=== PATIENT | female | born 1995 | race Caucasian/White ===

== ENCOUNTER 2017-08-02 20:17 | Emergency (ER) | payer BC ==
[~2017-08-02] VITALS: Ht 165.1 cm; Wt 62.4 kg
[2017-08-02 20:33] VITALS: BP 128/90
[2017-08-02] MEDS ORDERED: BCP (20:38)
[2017-08-02] MEDS ORDERED: KETOROLAC 30 MG/1 ML ONE (20:50)
[2017-08-02] MEDS ORDERED: KETOROLAC 30 MG/1 ML IM ONE (21:00)
[2017-08-02] MEDS ORDERED: ONDANSETRON ODT 4 MG PO ONE (21:30)
[2017-08-02] MEDS ORDERED: HYDROcodone/APAP 5/325 TABLET PO ONE (21:30)
[2017-08-02] MEDS ORDERED: ONDANSETRON ODT 4 MG ONE (21:52)
[2017-08-02] MEDS ORDERED: HYDROcodone/APAP 5/325 TABLET ONE (21:52)
== END 2017-08-02 22:09 | disposition home or self-care (01) ==
LOC: ED 21:45
DX: S83.91XA Sprain of unspecified site of right knee, initial encounter (principal); X58.XXXA Exposure to other specified factors, initial encounter; Y93.01 Activity, walking, marching and hiking; Y92.89 Other specified places as the place of occurrence of the external cause; Y99.8 Other external cause status
CPT/HCPCS: 29505; 73564; 73590; 96372; 99284; J1885; Q0162

== ENCOUNTER 2017-12-21 16:53 | Emergency (ER) | payer BC ==
[~2017-12-21] VITALS: Ht 165.1 cm; Wt 80.0 kg
[~2017-12-21 16:53] MED LIST: BCP
[2017-12-21 16:56] VITALS: BP 138/86
[2017-12-21] MEDS ORDERED: HYDROcodone/APAP 5/325 TABLET PO PRN (17:30)
[2017-12-21] MEDS ORDERED: IBUPROFEN 200 MG TABLET PO ONE (17:30)
[2017-12-21] MEDS ORDERED: HYDROcodone/APAP 5/325 TABLET ONE (17:33)
[2017-12-21] MEDS ORDERED: IBUPROFEN 200 MG TABLET ONE (17:34)
== END 2017-12-21 18:37 | disposition home or self-care (01) ==
LOC: ED 18:28
DX: G89.11 Acute pain due to trauma (principal); M79.604 Pain in right leg
CPT/HCPCS: 99284

== ENCOUNTER 2018-05-15 20:53 | Emergency (ER) | payer BC ==
[~2018-05-15] VITALS: Ht 165.1 cm; Wt 75.9 kg
[2018-05-15] MEDS ORDERED: ALBUTEROL (21:29)
[2018-05-15] MEDS ORDERED: AZIT250T89 PO (21:29)
[2018-05-15] MEDS ORDERED: MUCINEX (21:29)
[2018-05-15 21:55] VITALS: BP 114/75
[2018-05-15] MEDS ORDERED: IBUPROFEN 800 MG TABLET ONE (22:39)
[2018-05-15] MEDS ORDERED: IBUPROFEN 200 MG TABLET PO ONE (23:00)
== END 2018-05-15 22:45 | disposition home or self-care (01) ==
LOC: ED 22:40
DX: R07.89 Other chest pain (principal); R05 Cough
CPT/HCPCS: 71046; 93005; 99284

== ENCOUNTER 2020-05-02 02:04 | Emergency (ER) | payer BC ==
[~2020-05-02] VITALS: Ht 165.1 cm; Wt 75.0 kg
[~2020-05-02 02:04] MED LIST changes: +ALBUTEROL; +AZIT250T89 PO; +MUCINEX
[2020-05-02] MEDS ORDERED: ONDANSETRON 2MG/ML, 2ML ONE (02:42)
[2020-05-02] MEDS ORDERED: SODIUM CHLORIDE FLUSH 10ML SYR IVF ONE (03:00)
[2020-05-02] MEDS ORDERED: ONDANSETRON 2MG/ML, 2ML IVPush ONE (03:00)
[2020-05-02] MEDS ORDERED: SODIUM CHLORIDE 0.9% 1,000ML IVBOLUS ONE (03:00)
[2020-05-02 03:17] LABS: MICROSCOPIC INDICATED
[2020-05-02 03:23] LABS: BASOPHILS % (AUTO) 0 % (0-1); EOSINOPHILS # (AUTO) 0.03 x10^3/uL (0-0.4); EOSINOPHILS % (AUTO) 0 % (1-7); LYMPHOCYTES # (AUTO) 0.59 x10^3/uL (1-3.4); LYMPHOCYTES % (AUTO) 7 % (22-44); MD NO; MEAN CORPUSCULAR HEMOGLOBIN 30.7 pg (27.0-34.8); MEAN CORPUSCULAR HGB CONC 33.3 g/dL (32.4-35.8); MONOCYTES # (AUTO) 0.55 x10^3/uL (0.2-0.8); MONOCYTES % (AUTO) 6 % (2-9); NEUTROPHILS # (AUTO) 7.94 x10^3/uL (1.8-6.8); NEUTROPHILS % (AUTO) 87 % (42-75); PLATELET COUNT 271 x10^3/uL (130-400); RED BLOOD COUNT 5.37 x10^6/uL (3.82-5.3); RED CELL DISTRIBUTION WIDTH 13.3 % (9.6-15.2)
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
[2020-05-02 03:35] LABS: ALANINE AMINOTRANSFERASE 39 U/L (12-78); ALBUMIN 4.3 g/dL (3.4-5.0); ANION GAP 8 mmol/L (5-15); CALCIUM 9.9 mg/dL (8.5-10.1); CHLORIDE 107 mmol/L (98-107)
[2020-05-02 03:40] LABS: ALKALINE PHOSPHATASE 57 U/L (45-117); TOTAL PROTEIN 9.2 g/dL (6.4-8.2)
--- NOTE | 2020-05-02 03:58 | NUR ---
PT TO IMAGING.
--- NOTE | 2020-05-02 04:35 | NUR ---
PT LAYING IN BED, RESPIRATIONS EVEN AND UNLABORED. FRIEND LAYING IN GURNEY WITH PT. LIGHTS OFF TO PROMOTE REST.
--- NOTE | 2020-05-02 04:50 | NUR ---
PT TO IMAGING.
[2020-05-02 05:14] VITALS: BP 118/76
[2020-05-02] MEDS ORDERED: OMNIPAQUE 350 MG/ML, 100ML BOTTLE ONE (05:47)
--- NOTE | 2020-05-02 06:08 | NUR ---
PRIOR TO D/C ERP BACK TO BEDSIDE TO UPDATE PT ON POC. PT STATED RELIEF FROM NAUSEA WITH MEDICATION AND STATED SHE FELT "MUCH BETTER" AFTER THE FLUIDS HAD FINISHED INFUSING.
== END 2020-05-02 05:52 | disposition home or self-care (01) ==
LOC: ED 05:00
DX: R10.84 Generalized abdominal pain (principal); R11.2 Nausea with vomiting, unspecified
CPT/HCPCS: 36415; 74177; 80053; 81001; 83690; 84703; 85025; 87086; 96361; 96374; 99285; J2405; J7030; Q9967